=== PATIENT | male | born 1985 | race African-American/Black ===

== ENCOUNTER 2021-11-21 00:03 | Emergency (ER) | payer MEDICAID ==
[~2021-11-21] VITALS: Ht 182.9 cm; Wt 73.0 kg
[2021-11-21] MEDS ORDERED: TETANUS, DIPHTHERIA, PERTUSSIS VAC/PF 0.5ML (>10YR OLD) IM ONE (00:15)
[2021-11-21] MEDS ORDERED: IBUPROFEN 600MG TABLET PO ONE (01:30)
[2021-11-21] MEDS ORDERED: LIDOCAINE HCL/PF 1% 10 MG/ML 5ML VIAL INFIL ONE ×2 (02:00→03:15)
[2021-11-21] MEDS ORDERED: HYDROCODONE/ACETAMINOPHEN 5/325MG TABLET PO ONE (02:15)
[2021-11-21] MEDS ORDERED: LIDOCAINE HCL 1% 30ML VIAL (10MG/ML) INFIL ONE (03:15)
[2021-11-21 03:50] VITALS: BP 125/70
[2021-11-21] MEDS ORDERED: HYDR-4001 MT (03:51)
[2021-11-21] MEDS ORDERED: NAPR-1176 MT (03:51)
== END 2021-11-21 03:50 | disposition home or self-care (01) ==
LOC: ER 00:03
DX: S62.306A Unspecified fracture of fifth metacarpal bone, right hand, initial encounter for closed fracture (principal); Y04.0XXA Assault by unarmed brawl or fight, initial encounter; Y93.89 Activity, other specified; Y92.89 Other specified places as the place of occurrence of the external cause; Y99.8 Other external cause status
CPT/HCPCS: 73130; 90471; 90715; 99284; J3490

== ENCOUNTER 2023-01-11 19:59 | Emergency (ER) | payer SELFPAY ==
[~2023-01-11] VITALS: Ht 182.9 cm; Wt 74.5 kg
[~2023-01-11 19:59] MED LIST: HYDR-4001 MT; NAPR-1176 MT
[2023-01-11 20:06] VITALS: O2SAT 99
[2023-01-11] MEDS ORDERED: HYDROCODONE/ACETAMINOPHEN 5/325MG TABLET PO ONE (22:00)
[2023-01-11] MEDS ORDERED: HYDR-4001 MT (22:52)
[2023-01-11] MEDS ORDERED: IBUP-2029 MT (22:52)
[2023-01-12 00:02] VITALS: BP 128/84; PULSE 78; RESP 16; TEMP 98
== END 2023-01-12 00:03 | disposition home or self-care (01) ==
LOC: ER 19:59
DX: S62.91XA Unspecified fracture of right hand, initial encounter for closed fracture (principal); X58.XXXA Exposure to other specified factors, initial encounter; Y93.89 Activity, other specified; Y92.89 Other specified places as the place of occurrence of the external cause; Y99.8 Other external cause status
CPT/HCPCS: 29130; 73130; 99283

== ENCOUNTER 2023-05-05 06:20 | Emergency (ER) | payer MEDICAID ==
[~2023-05-05] VITALS: Ht 182.9 cm; Wt 80.2 kg
[~2023-05-05 06:20] MED LIST changes: +IBUP-2029 MT
[2023-05-05 06:28] VITALS: O2SAT 100
[2023-05-05 09:15] VITALS: BP 114/87; PULSE 85; RESP 19; TEMP 98
== END 2023-05-05 09:36 | disposition home or self-care (01) ==
LOC: ER 06:20
DX: S01.112A Laceration without foreign body of left eyelid and periocular area, initial encounter (principal); Z79.899 Other long term (current) drug therapy; W18.39XA Other fall on same level, initial encounter; Y93.89 Activity, other specified; Y92.89 Other specified places as the place of occurrence of the external cause; Y99.8 Other external cause status
CPT/HCPCS: 12011; 99282

== ENCOUNTER 2025-04-28 22:25 | Emergency (ER) | payer SELFPAY ==
[~2025-04-28] VITALS: Ht 182.9 cm; Wt 75.0 kg
[~2025-04-28 22:25] MED LIST changes: +IBUP-1455 MT; -IBUP-2029 MT
[2025-04-28 22:46] VITALS: O2SAT 98
[2025-04-28] MEDS: KETOROLAC 15MG/ML VIAL IM ONE (23:49)
[2025-04-29] MEDS ORDERED: TUSSL MT (01:05)
[2025-04-29 01:13] LABS: INFLUENZA TYPE A Presumptive Negative (Pres. Neg.)
[2025-04-29 01:14] LABS: INFLUENZA TYPE B Presumptive Negative (Pres. Neg.)
[2025-04-29 01:30] VITALS: BP 105/70; PULSE 78; RESP 18; TEMP 37.2; O2SAT 99
== END 2025-04-29 01:31 | disposition home or self-care (01) ==
LOC: ER 22:25
DX: B34.9 Viral infection, unspecified (principal); R05.9 Cough, unspecified; R09.81 Nasal congestion; Z79.1 Long term (current) use of non-steroidal anti-inflammatories (NSAID); Z20.822 Contact with and (suspected) exposure to COVID-19
CPT/HCPCS: 99284; 71045; 87426; 87804 ×2; 96372; J1885